=== PATIENT | female | born 1995 | race Hispanic/Latino ===

== ENCOUNTER 2018-03-17 22:27 | Emergency (ER) | payer BC ==
[~2018-03-17] VITALS: Ht 165.1 cm; Wt 76.7 kg
[2018-03-17] MEDS ORDERED: ONDANSETRON HCL 4 MG ORAL DISINTEGRATING TAB PO ONE (23:30)
[2018-03-18] MEDS ORDERED: KETOROLAC TROMETHAMINE 30 MG/ML VIAL IV STA (00:05)
[2018-03-18] MEDS ORDERED: SODIUM CHLORIDE 0.9% 1000ML 1,000 ML IV SCH (00:15)
[2018-03-18 01:36] VITALS: BP 136/75
== END 2018-03-18 01:37 | disposition home or self-care (01) ==
LOC: FSED 22:27
DX: R11.2 Nausea with vomiting, unspecified (principal); R19.7 Diarrhea, unspecified
CPT/HCPCS: 80053; 81003; 81025; 85025; 99283

== ENCOUNTER 2019-10-12 21:57 | Emergency (ER) | payer SELFPAY ==
[~2019-10-12] VITALS: Ht 162.6 cm; Wt 77.1 kg
--- OUTSIDE RECORDS SUMMARY | 2019-10-12 21:59 | XMS REPORT ---
Author Author [facility] Organization [facility] Address [address] [place] [address] [place] [id number] Phone Unavailable Care Team Providers Care Backbreaker Name Role Phone Unavailable Unavailable Problems This patient has no known problems. Allergies, Adverse Reactions, Alerts This patient has no known allergies or adverse reactions. Medications This patient has no known medications. Procedures This patient has no known procedures. Encounters Start Date/Time End Date/Time Encounter Type Admission Type Attendi [facility] Care Department Encounter ID Source 2018-01-04 00:00:00 2018-01-04 00:00:00 Outpatient [facility] [id number] [facility] Results This patient has no known results.
[2019-10-12] MEDS ORDERED: SODIUM CHLORIDE 0.9% 1000ML 1,000 ML IV STA ×2 (22:57)
[2019-10-12] MEDS ORDERED: ONDANSETRON HCL INJ 2MG/ML 2ML 2 MG/ML VIAL IV ONE (23:00)
[2019-10-12] MEDS ORDERED: FAMOTIDINE 20 MG/2 ML VIAL IV ONE ×2 (23:00→23:17)
[2019-10-12] MEDS ORDERED: ZOFRAN4 MG SL (23:04)
[2019-10-12] MEDS ORDERED: FAMOTIDINE20 MG PO (23:04)
--- NOTE | 2019-10-12 23:04 | Emergency Department Note ---
History of Present Illnes History of Present Illness Chief Complaint: General Medicine Complaints History of Present Illness This is a 24 year old female heavy drinking last weekend, now feel nauseous, mild epigastric pain, cramping, could not take po. . 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 Any updates have been documented here. Past Medical History Recent Fever: No Clinical Suspicion of Infectio: No New/Unexplained Change in Ment: No Past Medical History: None Past Surgical History: None Social History Smoking Cessation: Never Smoker Counseling Performed: No Alcohol Use: Occasional Any Illegal Drug Use: No TB Exposure/Symptoms: No Physically hurt or threatened: No Other Last Tetanus: UNK Any Pre-Existing Lines (PICC,: Yes Is patient up to date on immun: Yes Last Flu: UNK Last Pneumovax: UNK Review of Systems Review of Systems Constitutional: no symptoms EENTM: no symptoms Cardiovascular: no symptoms Respiratory: no symptoms Gastrointestinal: abdominal pain, nausea Genitourinary: no symptoms Musculoskeletal: muscle pain Neurological: no symptoms Psychological: no symptoms Endocrine: no symptoms Hematological/Lymphatic: no symptoms Review of other systems All other systems reviewed and negative. Physical Exam Related Data Allergies: Coded Allergies: No Known Allergies (Unverified , 03/18/18) Triage Vital Signs Vital Signs Date Time Temp Pulse Resp B/P (MAP) Pulse Ox O2 Delivery O2 Flow Rate FiO2 10/12/19 22:45 97.7 81 18 138/88 100 Physical Exam CONSTITUTIONAL Constitutional: well-developed, well-nourished HENT HENT: normocephalic, atraumatic, oropharynx clear/moist, mucosae dry, nose normal HENT L/R: left ext ear normal, right ext ear normal EYES Eyes: PERRL, conjunctivae normal NECK Neck: ROM normal PULMONARY Pulmonary: effort normal, breath sounds normal CARDIOVASCULAR Cardiovascular: regular rhythm, heart sounds normal, capillary refill normal, normal rate GASTROINTESTINAL Abdominal: soft, nontender, bowel sounds normal GENITOURINARY Genitourinary: exam deferred SKIN Skin: warm, dry MUSCULOSKELETAL Musculoskeletal: ROM normal NEUROLOGICAL Neurological: alert, oriented x 3, no gross motor or sensory deficits PSYCHOLOGICAL Psychological: mood/affect normal, judgement normal Results Laboratory Lab results reviewed: Yes Laboratory comments k is 2.9, low Critical Care Time Subsequent provider . Assessment & Plan Assessment & Plan Problems: (1) Dehydration (2) Hypokalemia (3) Alcoholic gastritis Assessment & Plan 24 yo LAF c/o nausea, muscle scram, unable to hydrate herself after binge drinking, will check her electrolyte, IV Zofran, Pepcid and hydration Reassessment Reassessment time: 00:30 Depart Disposition: HOME, SELF-CARE Last Vital Signs Date Time Temp Pulse Resp B/P (MAP) Pulse Ox O2 Delivery O2 Flow Rate FiO2 10/12/19 22:45 97.7 81 18 138/88 100 Home Meds Active Scripts Famotidine (FAMOTIDINE) 20 Mg Tab, 20 MG PO BID, #30 TAB Prov:LANG RODRIGUEZ MD 10/12/19 Ondansetron Hcl* (ZOFRAN*) 4 Mg Tablet, 4 MG SL Q6H PRN for NAUSEA, #14 MG 0 Refills Prov:LANG RODRIGUEZ MD 10/12/19 LANG RODRIGUEZ MD October 12, 2019 23:04
[2019-10-12] MEDS ORDERED: ONDANSETRON HCL INJ 2MG/ML 2ML 2 MG/ML VIAL ONE (23:16)
[2019-10-12] MEDS ORDERED: SODIUM CHLORIDE 0.9% 1000ML 2,000 ML ONE (23:17)
[2019-10-13] MEDS ORDERED: POTASSIUM CHLORIDE 20 MEQ TAB CR PO STA (00:35)
[2019-10-13] MEDS ORDERED: POTASSIUM CHLORIDE 20 MEQ TAB CR PO ONE (00:46)
== END 2019-10-13 00:54 | disposition home or self-care (01) ==
LOC: FSED 21:57
DX: R10.13 Epigastric pain (principal); E86.0 Dehydration; E87.6 Hypokalemia; K29.20 Alcoholic gastritis without bleeding
CPT/HCPCS: 99283; J2405; J7030

== ENCOUNTER 2021-05-03 21:51 | Emergency (ER) | payer OTHER, MEDICARE ==
[~2021-05-03] VITALS: Ht 162.6 cm; Wt 77.1 kg
[~2021-05-03 21:51] MED LIST: FAMOTIDINE20 MG PO; ZOFRAN4 MG SL
[2021-05-03] MEDS ORDERED: SODIUM CHLORIDE 0.9% 1000ML 1,000 ML IV STA (22:14)
[2021-05-03] MEDS ORDERED: KETOROLAC TROMETHAMINE 30 MG/ML VIAL IV ONE (22:15)
[2021-05-03] MEDS ORDERED: ONDANSETRON HCL INJ 2MG/ML 2ML 2 MG/ML VIAL IV ONE (22:15)
[2021-05-03] MEDS ORDERED: DEXAMETHASONE SOD PHOS INJ 4 MG/ML SDV IV ONE (22:15)
[2021-05-03] MEDS ORDERED: FAMOTIDINE 20 MG/2 ML VIAL IV ONE (22:15)
[2021-05-03] MEDS ORDERED: ONDANSETRON ODT4 MG PO (22:23)
[2021-05-03] MEDS ORDERED: IBUPROFEN IB200 MG PO (22:23)
[2021-05-03] MEDS ORDERED: FAMOTIDINE20 MG PO (22:23)
[2021-05-03] MEDS ORDERED: DEXAMETHASONE SOD PHOS INJ 4 MG/ML SDV ONE (22:31)
[2021-05-03] MEDS ORDERED: SODIUM CHLORIDE 0.9% 1000ML 1,000 ML ONE (22:32)
== END 2021-05-03 23:45 | disposition home or self-care (01) ==
LOC: FSED 21:54
DX: R07.89 Other chest pain (principal)
CPT/HCPCS: 80053; 85025; 85379; 99283; J1100; J1885; J2405; J7030

== ENCOUNTER 2024-11-05 18:51 | Emergency (ER) | payer OTHER ==
[~2024-11-05] VITALS: Ht 165.1 cm; Wt 90.7 kg
[~2024-11-05 18:51] MED LIST changes: +IBUPROFEN IB200 MG PO; +ONDANSETRON ODT4 MG PO
[2024-11-05] MEDS: KETOROLAC TROMETHAMINE 30 MG/ML VIAL IV STA (19:31)
[2024-11-05 22:40] VITALS: PULSE 67; RESP 18; TEMP 98.8
[2024-11-05 22:45] VITALS: BP 142/84; PULSE 67; RESP 18; TEMP 98.5; O2SAT 98
== END 2024-11-05 22:48 | disposition home or self-care (01) ==
LOC: FSED 19:03
DX: R07.89 Other chest pain (principal); R94.31 Abnormal electrocardiogram [ECG] [EKG]
CPT/HCPCS: 71045; 80048; 84484; 85025; 93005; 99284; J1885